=== PATIENT | male | born 1990 | race Hispanic/Latino ===

== ENCOUNTER 2018-01-20 10:56 | Emergency (ER) | payer SELFPAY ==
[2018-01-20 10:59] VITALS: BMI 26.6
[2018-01-20 11:18] VITALS: O2SAT 100
--- NOTE | 2018-01-20 11:22 | ED PDOC ---
Arrival/HPI - General Chief Complaint: Chest Pain Time Seen by Provider: 01/20/18 11:21 Historian: Patient - History of Present Illness Narrative History of Present Illness (Text): 01/20/18 11:21 Patient is a 27 year old male whose past medical history includes anxiety and panic attacks, who presents to the Emergency department complaining of left sided chest pain with associated face and hand numbness, which started prior to arrival. Patient reports that while at work he started experiencing left sided chest pain which doesn't radiated to other areas. He also started experiencing dyspnea. Patient states that he has a history of panic attacks which manifest with chest pains, but denies that his current symptoms are similar. He mentions that his symptoms are improving. Patient explains that he is currently anxious and stressed because his mother was in a MVA yesterday and went to work today. Patient denies fevers, chills, headache, dizziness, shortness of breath, cough, abdominal pain, nausea, vomiting, diarrhea, back pain, neck pain, or any other complaint. Of note patient denies any family history of myocardial infarction or heart disease. Time/Duration: Prior to Arrival Symptom Course: Improving Context: Work Past Medical History - Provider Review Nursing Documentation Reviewed: Yes - Infectious Disease Hx of Infectious Diseases: None - Psychiatric Hx Anxiety: Yes Hx Substance Use: No Family/Social History - Physician Review Nursing Documentation Reviewed: Yes Family/Social History: Hypertension Smoking Status: Never Smoked Hx Alcohol Use: Yes Frequency of alcohol use: Socially Hx Substance Use: No Allergies/Home Meds Allergies/Adverse Reactions: Allergies No Known Allergies Allergy (Verified 01/20/18 10:59) Home Medications: Home Meds Medication Instructions Recorded Confirmed No Known Home Med 01/20/18 01/20/18 Review of Systems - Physician Review All systems were reviewed & negative as marked: Yes - Review of Systems Respiratory: SOB Cardiovascular: Chest Pain Neurological: Other (Hand and facial numbness). absent: Headache, Dizziness Psychiatric: Anxiety Physical Exam Vital Signs Reviewed: Yes Vital Signs Temp Pulse Resp BP Pulse Ox 01/20/18 12:37 64 18 130/78 100 01/20/18 11:17 98.2 F 67 18 139/87 100 Temperature: Afebrile Blood Pressure: Normal Pulse: Regular Respiratory Rate: Normal Appearance: Positive for: Well-Appearing Mental Status: Positive for: Alert and Oriented X 3 - Systems Exam Head: Present: Atraumatic, Normocephalic Pupils: Present: PERRL Extroacular Muscles: Present: EOMI Conjunctiva: Present: Normal Mouth: Present: Moist Mucous Membranes Neck: Present: Normal Range of Motion Respiratory/Chest: Present: Clear to Auscultation, Good Air Exchange. No: Respiratory Distress, Accessory Muscle Use Cardiovascular: Present: Regular Rate and Rhythm, Normal S1, S2. No: Murmurs Abdomen: No: Tenderness, Distention, Peritoneal Signs Back: Present: Normal Inspection Upper Extremity: Present: Normal Inspection. No: Cyanosis, Edema Lower Extremity: Present: Normal Inspection. No: Edema Neurological: Present: GCS=15, CN II-XII Intact, Speech Normal Skin: Present: Warm, Dry, Normal Color. No: Rashes Psychiatric: Present: Alert, Oriented x 3, Normal Insight, Normal Concentration , Anxious Medical Decision Making ED Course and Treatment: 01/20/18 11:22 Impression: Patient is a 27 year old male who is experiencing left sided chest pain. Differential Diagnosis included but are not limited to: Chest pain, anxiety, rule out NSTEMI Plan: --EKG --cardiac enzymes --Chest X-ray --aspirin and Ativan given --Urinalysis --Prescription for Potassium given. -- Reassess and disposition Progress Notes: 11:06 EKG shows NSR at 67bpm with no axis deviation and no ST/T wave changes. Interpreted by me. 12:44 Chest X-ray shows no acute process. Interpreted by me. 01/20/18 12:46 Reevaluation: On reevaluation the patient feels better and is in no acute distress. I have discussed the results and plan with the patient, who expresses understanding. Patient given the opportunity to ask question, all questions were answered and there is agreement with the plan to discharge the patient home. Patient is stable for discharge. Patient was instructed to follow up with physician/clinic in 1-2 days or return if symptoms persist/worsen or new concerning symptoms arise. - Lab Interpretations Lab Results: 01/20/18 11:20 01/20/18 11:20 Lab Results 01/20/18 11:20: Sodium 148, Potassium 3.4 L, Chloride 108 H, Carbon Dioxide 22, Anion Gap 21 H, BUN 13, Creatinine 0.8, Est GFR ( Amer) > 60, Est GFR ( Non-Af Amer) > 60, Random Glucose 98, Calcium 10.2, Total Bilirubin 0.9, AST 42 , ALT 62 H, Alkaline Phosphatase 55, Lactate Dehydrogenase 448, Total Creatine Kinase 100, Troponin I < 0.01, Total Protein 8.1, Albumin 5.3 H, Globulin 2.9, Albumin/Globulin Ratio 1.8 01/20/18 11:20: WBC 7.3, RBC 5.07, Hgb 16.2, Hct 43.7, MCV 86.2, MCH 32.0, MCHC 37.1 H, RDW 12.3, Plt Count 200, MPV 9.2, Gran % 60.4, Lymph % (Auto) 30.0, Bradford % (Auto) 6.7 H, Eos % (Auto) 2.6, Baso % (Auto) 0.3, Gran # 4.41, Lymph # ( Auto) 2.2, Bradford # (Auto) 0.5, Eos # (Auto) 0.2, Baso # (Auto) 0.02 I have reviewed the lab results: Yes - RAD Interpretation Radiology Orders: 01/20/18 11:22 CHEST PORTABLE [RAD] Stat - EKG Interpretation Interpreted by ED Physician: Yes Type: 12 lead EKG - Medication Orders Current Medication Orders: Discontinued Medications Aspirin (Aspirin) 325 mg PO STAT STA Stop: 01/20/18 11:22 Last Admin: 01/20/18 11:47 Dose: 325 mg Lorazepam (Ativan) 1 mg PO ONCE ONE PRN Reason: Protocol Stop: 01/20/18 11:26 Last Admin: 01/20/18 11:47 Dose: 1 mg Potassium Chloride (K-Dur 20 Meq Er Tab) 40 meq PO STAT STA Stop: 01/20/18 12:55 - Scribe Statement The provider has reviewed the documentation as recorded by the Glennibkhushboo Dennis Provider Scribe Attestation: All medical record entries made by the Glennibkhushboo were at my direction and personally dictated by me. I have reviewed the chart and agree that the record accurately reflects my personal performance of the history, physical exam, medical decision making, and the department course for this patient. I have also personally directed, reviewed, and agree with the discharge instructions and disposition. Disposition/Present on Arrival - Present on Arrival Any Indicators Present on Arrival: No History of DVT/PE: No History of Uncontrolled Diabetes: No Urinary Catheter: No History of Decub. Ulcer: No History Surgical Site Infection Following: None - Disposition Have Diagnosis and Disposition been Completed?: Yes Diagnosis: Chest pain, Anxiety Disposition: HOME/ ROUTINE Disposition Time: 12:57 Patient Plan: Discharge Patient Problems: Current Active Problems Problem Status Onset Chest pain Acute Anxiety Acute Condition: GOOD Discharge Instructions (ExitCare): Anxiety, Adult (DC), Chest Pain (ED) Forms: [employer] (Kazakh)
[2018-01-20 11:34] LABS: BASO # 0.02 K/mm3 (0.0-2.0); BASO % 0.3 % (0.0-3.0); EOS # 0.2 (0.0-0.7); EOS % 2.6 % (1.5-5.0); GRAN # 4.41 (1.4-6.5); GRAN % 60.4 % (50.0-68.0); HEMOGLOBIN 16.2 g/dL (14.0-18.0); LYMPH # 2.2 (1.2-3.4); MEAN CELL VOLUME 86.2 fl (80.0-105.0); MEAN CORPUSCULAR HGB CONC 37.1 g/dl (31.0-37.0); MEAN PLATELET VOLUME 9.2 fl (7.0-11.0); MONO # 0.5 (0.1-0.6); MONO % 6.7 % (1.0-6.0); RBC 5.07 10^6/uL (3.5-6.1); RED CELL DISTRIBUTION WIDTH 12.3 % (11.5-14.5); WHITE BLOOD COUNT 7.3 10^3/ul (4.5-11.0)
[2018-01-20 11:45] LABS: ALB/GLOB RATIO 1.8 (1.1-1.8); ALBUMIN 5.3 g/dL (3.0-4.8); ALT/SGPT 62 U/L (7-56); AST/SGOT 42 U/L (17-59); BLOOD UREA NITROGEN 13 mg/dL (7-21); CALCIUM 10.2 mg/dL (8.4-10.5); GFR AFRICAN-AMERICAN > 60; GFR NON-AFRICAN AMERICAN > 60
[2018-01-20 11:56] LABS: TROPONIN I < 0.01 ng/mL
[2018-01-20] MEDS ORDERED: Potassium Chloride 20 mEq ER Tab PO STA (12:54)
--- NOTE | 2018-01-20 13:25 | RAD ---
HISTORY: Chest pain COMPARISON: No prior. FINDINGS: LUNGS: No active pulmonary disease. PLEURA: No significant pleural effusion identified, no pneumothorax apparent. CARDIOVASCULAR: Normal. OSSEOUS STRUCTURES: No significant abnormalities. VISUALIZED UPPER ABDOMEN: Normal. OTHER FINDINGS: None. IMPRESSION: No active disease.
[2018-01-20 13:31] VITALS: TEMP 98.4
[2018-01-20 13:36] LABS: URINE BILIRUBIN NEGATIVE (NEGATIVE); URINE BLOOD NEGATIVE (NEGATIVE); URINE GLUCOSE (UA) NEGATIVE (NEGATIVE); URINE LEUKOCYTE ESTERASE NEGATIVE Leu/uL (NEGATIVE); URINE PROTEIN NEGATIVE mg/dL (<30 mg/dL); URINE UROBILINOGEN 0.2 E.U./dL (<1 E.U./dL)
[2018-01-20 13:37] VITALS: BP 129/80; PULSE 65; RESP 17
[2018-01-20 13:37] LABS: URINE APPEARANCE CLEAR (CLEAR); URINE COLOR YELLOW (YELLOW)
--- NOTE | 2018-01-21 09:32 | CARD ---
APPROVED REPORT EKG Measurement Heart [id number] <Conclusion> Normal sinus rhythm PRWP V 1 - 4. Probably lead positioning PWNL
== END 2018-01-20 13:36 | disposition home or self-care (01) ==
LOC: ED 10:56
DX: F41.9 Anxiety disorder, unspecified (principal); R07.9 Chest pain, unspecified